=== PATIENT | female | born 1940 | race Caucasian/White ===

== ENCOUNTER 2017-04-26 07:54 | Day surgery (SDC) | payer MEDICARE, OTHER ==
[~2017-04-26] VITALS: Ht 144.8 cm; Wt 66.8 kg
[~2017-04-26 07:54] MED LIST: SODIUM CHLORIDE 0.9% 1,000 ML IV ONE
[2017-04-26] MEDS ORDERED: BENZOCAINE 20% 50 MCG/SPRAY 57 GM TP ONE (07:55)
[2017-04-26] MEDS ORDERED: LIDOCAINE HCL 2% 30 ML JELLY TP ONE (07:55)
[2017-04-26] MEDS ORDERED: MIDAZOLAM HCL 2 MG/2 ML VIAL ONE (08:15)
[2017-04-26] MEDS ORDERED: SODIUM CHLORIDE 0.9% 1,000 ML IV ONE (08:16)
[2017-04-26] MEDS ORDERED: FentaNYL CITRATE-PF 100 MCG/2 ML VIAL ONE (08:16)
[2017-04-26 08:43] LABS: GLUCOMETER DEV NAME(LOC) SDS 5; GLUCOSE,POINT OF CARE 101 MG/DL (70-110)
[2017-04-26] MEDS ORDERED: FLUT1BLS IH (08:52)
[2017-04-26] MEDS ORDERED: SIMV-260 PO (08:52)
[2017-04-26] MEDS ORDERED: ALBU8HFA4 IH (08:52)
[2017-04-26] MEDS ORDERED: IBUP-2071 PO (08:52)
[2017-04-26] MEDS ORDERED: OMEP20 PO (08:52)
[2017-04-26] MEDS ORDERED: LEVO500 PO (08:52)
[2017-04-26] MEDS ORDERED: MECL-111 PO (08:52)
[2017-04-26] MEDS ORDERED: MONT10TA21 PO (08:52)
[2017-04-26] MEDS ORDERED: LISI-661 PO (08:52)
[2017-04-26] MEDS ORDERED: FLUT16H NASAL (08:52)
[2017-04-26] MEDS ORDERED: MethylPREDNISolone SOD SUCC 125 MG/2 ML VIAL IVP ONE (09:30)
[2017-04-26] MEDS ORDERED: MethylPREDNISolone SOD SUCC 125 MG/2 ML VIAL ONE (10:20)
[2017-04-26] MEDS ORDERED: OXYGEN THERAPY IH SCH (20:00)
== END 2017-04-26 11:15 | disposition home or self-care (01) ==
LOC: SURGERY 07:54
PROVIDERS: ATTEND Internal Medicine Critical Care Medicine
DX: J38.4 Edema of larynx (principal); B37.0 Candidal stomatitis; F17.210 Nicotine dependence, cigarettes, uncomplicated; J45.909 Unspecified asthma, uncomplicated; E78.00 Pure hypercholesterolemia, unspecified; I10 Essential (primary) hypertension; Z79.1 Long term (current) use of non-steroidal anti-inflammatories (NSAID); Z90.710 Acquired absence of both cervix and uterus; Z79.899 Other long term (current) drug therapy
CPT/HCPCS: 31623; 31624; 71045; 82962; 87015; 87070; 87205; 87220; 88108; 88312; J2250; J2930; J3010; J7030

== ENCOUNTER 2022-09-14 11:31 | Emergency (ER) | payer MEDICARE, OTHER ==
[~2022-09-14] VITALS: Ht 152.4 cm; Wt 46.8 kg
[~2022-09-14 11:31] MED LIST changes: +ALBU8HFA4 IH; +FLUT16SP NASAL; +FLUT1BLS IH; +IBUP-1493 PO; +LEVO-72 PO; +LISI-893 PO; +MECL-160 PO; +MONT-35 PO; +OMEP20 PO; +SIMV-260 PO; -SODIUM CHLORIDE 0.9% 1,000 ML IV ONE
[2022-09-14] MEDS ORDERED: ATOR20TA PO (11:35)
[2022-09-14] MEDS ORDERED: LISI-894 PO (11:35)
[2022-09-14 11:44] VITALS: TEMP 98.5
[2022-09-14] MEDS ORDERED: CARBAMIDE PEROXIDE 6.5% 15 ML OTIC SOLUTION AD ONE (12:30)
[2022-09-14 13:16] VITALS: BP 111/57; PULSE 98; RESP 18
== END 2022-09-14 13:21 | disposition home or self-care (01) ==
LOC: EMS 11:31
DX: H61.21 Impacted cerumen, right ear (principal); E78.00 Pure hypercholesterolemia, unspecified; I10 Essential (primary) hypertension; F17.210 Nicotine dependence, cigarettes, uncomplicated
CPT/HCPCS: 69209; 99282; Z7502; Z7610